=== PATIENT | female | born 2000 | race Caucasian/White ===

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

== ENCOUNTER 2019-12-17 22:03 | Emergency (ER) | payer OTHER ==
[~2019-12-17] VITALS: Ht 177.8 cm; Wt 138.3 kg
[2019-12-17 22:12] VITALS: Ht 177.8 cm; Wt 138.3 kg
[2019-12-17 23:29] VITALS: BP 126/63
== END 2019-12-17 23:29 | disposition home or self-care (01) ==
LOC: ED 22:03
DX: S00.551A Superficial foreign body of lip, initial encounter (principal); J45.909 Unspecified asthma, uncomplicated; W26.9XXA Contact with unspecified sharp object(s), initial encounter; Y93.89 Activity, other specified; Y92.89 Other specified places as the place of occurrence of the external cause; Y99.8 Other external cause status
CPT/HCPCS: 90715; J2001